=== PATIENT | female | born 2000 | race Caucasian/White ===

== ENCOUNTER 2022-05-05 15:00 | Emergency (ER) | payer BC ==
[2022-05-05] MEDS: Sodium Chloride 0.9% 1,000 ML IV ONE (17:17)
[2022-05-05] MEDS: Ondansetron 4 MG/2 ML SDV IVPUSH ONE (17:17)
[2022-05-05 17:30] LABS: CHLORIDE,CL 102 mmol/L (98-107); SODIUM,NA 138 mmol/L (136-145)
[2022-05-05 17:31] LABS: ANION GAP 12.7 mmol/L (5-15); ESTIMATED GFR 125 mL/min (>=60)
[2022-05-05] MEDS: Sulfamethoxazole/Trimethoprim 800-160 MG Tab PO ONE (18:14)
[2022-05-05] MEDS: Take Home: Ondansetron 4 MG Tab.DIS, 5 Tab Pack PO ONE (18:14)
== END 2022-05-05 18:20 | disposition home or self-care (01) ==
LOC: VM.ED 15:00
DX: E86.0 Dehydration (principal); N39.0 Urinary tract infection, site not specified; G90.A Postural orthostatic tachycardia syndrome [POTS]
CPT/HCPCS: 80053; 81001; 82550; 85025; 86140; 87086; 96361; 96374; 99284-25; A9270-GY; J2405; J7030; Q0162